=== PATIENT | male | born 1975 | race Caucasian/White ===

== ENCOUNTER 2021-07-10 13:17 | Emergency (ER) | payer OTHER ==
[2021-07-10 15:40] LABS: HEMOGLOBIN 14.7 gm/dl (14.0-17.5); RED BLOOD COUNT 4.5 M/UL (4.20-5.50); WHITE BLOOD COUNT 5.1 K/UL (4.5-11.0)
[2021-07-10 16:58] LABS: BUN/CREATININE RATIO 11 (0-10)
[2021-07-10] MEDS ORDERED: INDOCIN CAP 2525 MG PO (18:43)
== END 2021-07-10 19:15 | disposition home or self-care (01) ==
LOC: ER1 13:17
PROVIDERS: Emergency Medicine
DX: M10.9 Gout, unspecified (principal); E87.6 Hypokalemia; R79.89 Other specified abnormal findings of blood chemistry; F17.200 Nicotine dependence, unspecified, uncomplicated
CPT/HCPCS: 80053; 84550; 85025; 85652; 86140; 93970; 96372; 99284; J1100